=== PATIENT | female | born 1980 | race Caucasian/White ===

== ENCOUNTER 2017-07-13 19:29 | Inpatient (IN) | payer MEDICAID ==
[2017-07-13] MEDS: PROGESTERONE 100 MG CAP VAG (21:53)
[2017-07-13] MEDS: BETAMET NA PHOS/AC(6 MG/ML) 5ML INJ IM (21:55)
[2017-07-14 06:45] LABS: ADD MAN DIFF? NO
[2017-07-14 06:49] LABS: BASOPHILS % 0.2 % (0.0-2.0); EOSINOPHILS % 0.1 % (0.0-7.0); HEMATOCRIT 34.6 % (37.0-47.0); HEMOGLOBIN 11.8 g/dl (12.0-16.0); LYMPHOCYTES # 1.2 10^3/ul (0.8-2.9); LYMPHOCYTES % 10.9 % (15.0-51.0); MEAN CORPUSCULAR HEMOGLOBIN 30.6 pg (29.0-33.0); MEAN CORPUSCULAR HGB CONC 34.1 g/dl (32.0-37.0); MEAN CORPUSCULAR VOLUME 89.6 fl (82.0-101.0); MEAN PLATELET VOLUME 12.2 fl (7.4-10.4); MONOCYTE # 0.1 10^3/ul (0.3-0.9); MONOCYTES % 1.3 % (0.0-11.0); NEUTROPHIL # 9.2 10^3/ul (1.6-7.5); NEUTROPHILS % 86.7 % (39.0-77.0); PLATELET COUNT 147 10^3/UL (140-415); RED BLOOD COUNT 3.86 10^6/ul (4.20-5.40); RED CELL DISTRIBUTION WIDTH 13.2 % (11.5-14.5)
[2017-07-14 06:49] LABS: WHITE BLOOD COUNT 10.6 10^3/ul (4.8-10.8)
[2017-07-14 07:08] LABS: INR 0.99; PROTIME 13.2 Sec (11.9-14.9)
[2017-07-14] MEDS: PRENATAL VITAMIN PO (09:10)
[2017-07-14] MEDS: FERROUS SULFATE (EC) 325 MG TAB PO (09:10)
[2017-07-14] MEDS: PROGESTERONE 100 MG CAP VAG ×2 (09:10→21:08)
[2017-07-14] MEDS: CALCIUM CARBONATE 1.25 GM TAB PO (09:10)
[2017-07-14] MEDS: FOLIC ACID 1 MG TAB PO (10:21)
[2017-07-14 15:37] LABS: RAPID PLASMA REAGIN NONREACTIVE (NR)
[2017-07-14] MEDS: BETAMET NA PHOS/AC(6 MG/ML) 5ML INJ IM (21:57)
[2017-07-15] MEDS: PRENATAL VITAMIN PO (08:37)
[2017-07-15] MEDS: FOLIC ACID 1 MG TAB PO (08:37)
[2017-07-15] MEDS: FERROUS SULFATE (EC) 325 MG TAB PO (08:37)
[2017-07-15] MEDS: PROGESTERONE 100 MG CAP VAG (09:00)
== END 2017-07-15 13:40 | disposition left against medical advice (07) | DRG 782 ==
LOC: L-D 19:29
PROVIDERS: Obstetrics & Gynecology
DX: O26.872 Cervical shortening, second trimester (principal); Z3A.26 26 weeks gestation of pregnancy; Z97.5 Presence of (intrauterine) contraceptive device
CPT/HCPCS: 85025; 85610; 85730; 86592; 86850; 86900; 86901

== ENCOUNTER 2017-07-19 11:19 | Inpatient (IN) | payer MEDICAID ==
[2017-07-19 13:19] LABS: ADD UMIC YES; UR ASCORBIC ACID NEGATIVE (NEGATIVE); UR BILIRUBIN (Dip) NEGATIVE (NEGATIVE); UR BLOOD (Dip) 3+ mg/dL (NEGATIVE); UR CLARITY CLOUDY (CLEAR); UR COLOR YELLOW (YELLOW); UR GLUCOSE (Dip) NEGATIVE (NEGATIVE); UR KETONES (Dip) NEGATIVE (NEGATIVE); UR LEUKOCYTE ESTERASE (Dip) 3+ Leu/ul (NEGATIVE); UR NITRITE (Dip) NEGATIVE (NEGATIVE); UR RBC 5 /HPF (0-5); UR SQUAMOUS EPITHELIAL CELL FEW /HPF (FEW); UR TOTAL PROTEIN (Dip) NEGATIVE (NEGATIVE); UR UROBILINOGEN (Dip) NEGATIVE (NEGATIVE); UR WBC 16 /HPF (0-5)
[2017-07-19] MEDS: LACTATED RINGER'S 1,000 ML IV (18:53)
[2017-07-19] MEDS: MAGNESIUM SULFATE 4 GM/100 ML 100 ML IV (18:54)
[2017-07-19] MEDS: MAGNESIUM SULFATE 20 GM/500 ML 500 ML IV (19:13)
[2017-07-19 20:28] LABS: ADD MAN DIFF? NO
[2017-07-19 20:30] LABS: BASOPHIL # 0.1 10^3/ul (0.0-0.1); BASOPHILS % 0.3 % (0.0-2.0); EOSINOPHILS # 0.1 10^3/ul (0.0-0.5); EOSINOPHILS % 0.8 % (0.0-7.0); HEMATOCRIT 37.7 % (37.0-47.0); HEMOGLOBIN 12.8 g/dl (12.0-16.0); LYMPHOCYTES # 2.2 10^3/ul (0.8-2.9); MEAN CORPUSCULAR HEMOGLOBIN 30.9 pg (29.0-33.0); MEAN CORPUSCULAR VOLUME 91.1 fl (82.0-101.0); MEAN PLATELET VOLUME 12.8 fl (7.4-10.4); MONOCYTE # 1.1 10^3/ul (0.3-0.9); MONOCYTES % 6.3 % (0.0-11.0); NEUTROPHIL # 13.3 10^3/ul (1.6-7.5); NEUTROPHILS % 78.8 % (39.0-77.0); PLATELET COUNT 156 10^3/UL (140-415); RED BLOOD COUNT 4.14 10^6/ul (4.20-5.40); RED CELL DISTRIBUTION WIDTH 13.3 % (11.5-14.5)
[2017-07-19 20:30] LABS: WHITE BLOOD COUNT 16.9 10^3/ul (4.8-10.8)
[2017-07-19 20:49] LABS: INR 0.96; PARTIAL THROMBOPLASTIN TIME 25.8 Sec (25.0-35.0); PROTIME 12.9 Sec (11.9-14.9)
[2017-07-19 21:07] LABS: HEPATITIS B SURFACE ANTIGEN NEGATIVE (NEGATIVE)
[2017-07-20] MEDS: MAGNESIUM SULFATE 20 GM/500 ML 500 ML IV ×2 (05:40→16:45)
[2017-07-20] MEDS: ACETAMINOPHEN 325 MG TAB PO (06:07)
[2017-07-20] MEDS: AMPICILLIN 2 GM/NS (PMX) 100 ML IV (06:44)
[2017-07-20] MEDS: AMPICILLIN 1 GM/NS (PMX) 50 ML IV ×4 (10:50→23:08)
[2017-07-20 15:28] LABS: ADD MAN DIFF? NO
[2017-07-20 15:30] LABS: WHITE BLOOD COUNT 16.5 10^3/ul (4.8-10.8)
[2017-07-20 15:30] LABS: BASOPHIL # 0.1 10^3/ul (0.0-0.1); BASOPHILS % 0.4 % (0.0-2.0); EOSINOPHILS # 0.1 10^3/ul (0.0-0.5); EOSINOPHILS % 0.5 % (0.0-7.0); HEMOGLOBIN 11.5 g/dl (12.0-16.0); LYMPHOCYTES # 1.3 10^3/ul (0.8-2.9); LYMPHOCYTES % 8.1 % (15.0-51.0); MEAN CORPUSCULAR HEMOGLOBIN 30.2 pg (29.0-33.0); MEAN CORPUSCULAR HGB CONC 33.8 g/dl (32.0-37.0); MEAN CORPUSCULAR VOLUME 89.2 fl (82.0-101.0); MEAN PLATELET VOLUME 12.2 fl (7.4-10.4); MONOCYTES % 5.9 % (0.0-11.0); NEUTROPHIL # 13.9 10^3/ul (1.6-7.5); NEUTROPHILS % 84.4 % (39.0-77.0); PLATELET COUNT 161 10^3/UL (140-415); RED BLOOD COUNT 3.81 10^6/ul (4.20-5.40); RED CELL DISTRIBUTION WIDTH 13.4 % (11.5-14.5)
[2017-07-20] MEDS: LACTATED RINGER'S 1,000 ML IV ×2 (16:44→21:08)
[2017-07-20 19:47] LABS: MAGNESIUM 6.2 mg/dl (1.7-2.5)
[2017-07-21] MEDS: AMPICILLIN 1 GM/NS (PMX) 50 ML IV ×6 (02:58→23:00)
[2017-07-21] MEDS: LACTATED RINGER'S 1,000 ML IV ×2 (06:57→12:34)
[2017-07-21] MEDS: AZITHROMYCIN 500MG/NS (PMX) 250 ML IVPB (09:07)
[2017-07-21] MEDS: MAGNESIUM SULFATE 20 GM/500 ML 500 ML IV ×2 (09:13→19:43)
[2017-07-21 09:48] LABS: RUPTURE FETAL MEMBRANES POSITIVE (NEGATIVE)
[2017-07-21 19:43] LABS: MAGNESIUM 5.4 mg/dl (1.7-2.5)
[2017-07-22] MEDS: AMPICILLIN 1 GM/NS (PMX) 50 ML IV ×6 (01:40→22:55)
[2017-07-22] MEDS: MAGNESIUM SULFATE 20 GM/500 ML 500 ML IV (05:05)
[2017-07-22] MEDS: LACTATED RINGER'S 1,000 ML IV ×2 (05:08→19:05)
[2017-07-22 07:40] LABS: MAGNESIUM 6.1 mg/dl (1.7-2.5)
[2017-07-22] MEDS: AZITHROMYCIN 500MG/NS (PMX) 250 ML IVPB (08:27)
[2017-07-22 14:14] LABS: MAGNESIUM 6.2 mg/dl (1.7-2.5)
[2017-07-22] MEDS: DOCUSATE SODIUM 100 MG CAP PO (21:52)
[2017-07-23] MEDS: AMPICILLIN 1 GM/NS (PMX) 50 ML IV ×2 (03:25→06:33)
[2017-07-23] MEDS: LACTATED RINGER'S 1,000 ML IV ×3 (03:26→22:42)
[2017-07-23] MEDS: AZITHROMYCIN 500MG/NS (PMX) 250 ML IVPB (08:52)
[2017-07-23] MEDS: DOCUSATE SODIUM 100 MG CAP PO (08:52)
[2017-07-23] MEDS ORDERED: FAMOTIDINE 20 MG INJ (10:51)
[2017-07-23] MEDS ORDERED: CITRIC ACID/SODIUM CITRATE 15 ML CUP (10:51)
[2017-07-23] MEDS ORDERED: METOCLOPRAMIDE 10 MG INJ (10:51)
[2017-07-23] MEDS ORDERED: CEFAZOLIN 2 GM/50 ML (PMX) 50 ML IVPB (11:00)
[2017-07-23] MEDS: CITRIC ACID/SODIUM CITRATE 15 ML CUP PO (11:05)
[2017-07-23] MEDS: METOCLOPRAMIDE 10 MG INJ IV (11:05)
[2017-07-23] MEDS: FAMOTIDINE 20 MG INJ IV (11:05)
[2017-07-23] MEDS ORDERED: morphine SULFATE/PF (10 MG/10 ML) INJ (11:10)
[2017-07-23] MEDS ORDERED: BUPIVACAINE 0.75%/DEXT (SPINAL) 2 ML INJ (11:10)
[2017-07-23] MEDS ORDERED: PHENYLephrine (100 MCG/ML) 5ML SYG (11:10)
[2017-07-23] MEDS ORDERED: FENTAnyl 50 MCG/ML VIAL (11:10)
[2017-07-23 11:46] LABS: ADD MAN DIFF? NO
[2017-07-23 11:49] LABS: WHITE BLOOD COUNT 10.7 10^3/ul (4.8-10.8)
[2017-07-23 11:49] LABS: BASOPHILS % 0.3 % (0.0-2.0); EOSINOPHILS # 0.1 10^3/ul (0.0-0.5); EOSINOPHILS % 0.8 % (0.0-7.0); HEMATOCRIT 34.5 % (37.0-47.0); HEMOGLOBIN 11.6 g/dl (12.0-16.0); LYMPHOCYTES # 1.4 10^3/ul (0.8-2.9); MEAN CORPUSCULAR HEMOGLOBIN 30.7 pg (29.0-33.0); MEAN CORPUSCULAR HGB CONC 33.6 g/dl (32.0-37.0); MEAN CORPUSCULAR VOLUME 91.3 fl (82.0-101.0); MEAN PLATELET VOLUME 12.2 fl (7.4-10.4); MONOCYTE # 0.6 10^3/ul (0.3-0.9); MONOCYTES % 5.3 % (0.0-11.0); NEUTROPHIL # 8.5 10^3/ul (1.6-7.5); NEUTROPHILS % 80.1 % (39.0-77.0); PLATELET COUNT 162 10^3/UL (140-415); RED BLOOD COUNT 3.78 10^6/ul (4.20-5.40); RED CELL DISTRIBUTION WIDTH 13.1 % (11.5-14.5)
[2017-07-23] MEDS ORDERED: OXYTOCIN 30 UNITS/LR 500 ML IV ×2 (11:56→16:30)
[2017-07-23] MEDS ORDERED: ONDANSETRON 4 MG INJ (11:57)
[2017-07-23] MEDS ORDERED: DEXAMETHASONE 4 MG/ML 1 ML INJ (11:57)
[2017-07-23 12:16] LABS: PARTIAL THROMBOPLASTIN TIME 27.2 Sec (25.0-35.0); PT RATIO 1.1
[2017-07-23 12:48] LABS: INR 1.01; PROTIME 13.4 Sec (11.9-14.9)
[2017-07-23] MEDS ORDERED: ZOLPIDEM 5 MG TAB PO (13:00)
[2017-07-23] MEDS ORDERED: NALBUPHINE HCL (10 MG/1 ML) INJ IV (13:00)
[2017-07-23] MEDS ORDERED: ONDANSETRON 4 MG INJ IV (13:00)
[2017-07-23] MEDS ORDERED: NALOXONE (0.4 MG/ML) INJ IV (13:00)
[2017-07-23] MEDS ORDERED: DIPHENHYDRAMINE 50 MG INJ IV (13:00)
[2017-07-23] MEDS ORDERED: HYDROmorphONE 0.5 MG/0.5 ML SYG IV ×2 (13:00)
[2017-07-23 15:12] LABS: RAPID PLASMA REAGIN NONREACTIVE (NR)
[2017-07-23] MEDS ORDERED: MISOPROSTOL 200 MCG TAB PR (16:30)
[2017-07-23] MEDS ORDERED: CARBOPROST 250 MCG INJ IM (16:30)
[2017-07-23] MEDS ORDERED: METHYLERGONOVINE 0.2 MG INJ IM (16:30)
[2017-07-23] MEDS ORDERED: LANOLIN 7 GM TUBE TOP (16:30)
[2017-07-23] MEDS: KETOROLAC 30 MG INJ IV (20:04)
[2017-07-23] MEDS: SENNA/DOCUSATE NA (8.6MG/50MG) TAB PO (21:08)
[2017-07-24] MEDS: KETOROLAC 30 MG INJ IV (04:19)
[2017-07-24] MEDS: LACTATED RINGER'S 1,000 ML IV (06:47)
[2017-07-24] MEDS: SENNA/DOCUSATE NA (8.6MG/50MG) TAB PO ×2 (09:10→20:47)
[2017-07-24 09:58] LABS: ADD MAN DIFF? NO
[2017-07-24 10:02] LABS: BASOPHILS % 0.2 % (0.0-2.0); EOSINOPHILS # 0.1 10^3/ul (0.0-0.5); EOSINOPHILS % 0.8 % (0.0-7.0); HEMATOCRIT 28.8 % (37.0-47.0); HEMOGLOBIN 9.7 g/dl (12.0-16.0); LYMPHOCYTES # 1.8 10^3/ul (0.8-2.9); MEAN CORPUSCULAR HEMOGLOBIN 30.7 pg (29.0-33.0); MEAN CORPUSCULAR HGB CONC 33.7 g/dl (32.0-37.0); MEAN CORPUSCULAR VOLUME 91.1 fl (82.0-101.0); MONOCYTE # 0.5 10^3/ul (0.3-0.9); MONOCYTES % 4.4 % (0.0-11.0); NEUTROPHIL # 8.3 10^3/ul (1.6-7.5); PLATELET COUNT 145 10^3/UL (140-415); RED BLOOD COUNT 3.16 10^6/ul (4.20-5.40); RED CELL DISTRIBUTION WIDTH 12.7 % (11.5-14.5)
[2017-07-24 10:02] LABS: WHITE BLOOD COUNT 10.7 10^3/ul (4.8-10.8)
[2017-07-24] MEDS: OXYCODONE/ACETAMINOPHEN (5/325) TAB PO (13:55)
[2017-07-24] MEDS: IBUPROFEN 600 MG TAB PO ×2 (17:56→23:35)
[2017-07-25] MEDS: IBUPROFEN 600 MG TAB PO ×3 (05:26→17:25)
[2017-07-25] MEDS: SENNA/DOCUSATE NA (8.6MG/50MG) TAB PO ×2 (09:01→20:20)
[2017-07-25] MEDS: OXYCODONE/ACETAMINOPHEN (5/325) TAB PO (20:19)
[2017-07-26] MEDS: IBUPROFEN 600 MG TAB PO ×2 (00:20→05:54)
[2017-07-26] MEDS: SENNA/DOCUSATE NA (8.6MG/50MG) TAB PO (09:15)
[2017-07-26] MEDS: DIPHTH/TET/ACEL PERTUSS (ADULT) 0.5 ML VIAL IM* (09:42)
[2017-07-26] MEDS: OXYCODONE/ACETAMINOPHEN (5/325) TAB PO (11:53)
== END 2017-07-26 13:15 | disposition home or self-care (01) | DRG 766 ==
LOC: OBT 11:19 → L-D 11:20 → OBT 17:00 → L-D 07-23 12:45 → PP1 07-23 15:44
PROC: 4A1HXCZ Monitoring of Products of Conception, Cardiac Rate, External Approach (ICD-10-PCS; 2017-07-19)
PROC: 10D00Z1 Extraction of Products of Conception, Low, Open Approach (ICD-10-PCS; principal; 2017-07-23)
PROC: 0UB70ZZ Excision of Bilateral Fallopian Tubes, Open Approach (ICD-10-PCS; 2017-07-23)
DX: O26.873 Cervical shortening, third trimester (principal); O76 Abnormality in fetal heart rate and rhythm complicating labor and delivery; O42.913 Preterm premature rupture of membranes, unspecified as to length of time between rupture and onset of labor, third trimester; O34.211 Maternal care for low transverse scar from previous cesarean delivery; O26.33 Retained intrauterine contraceptive device in pregnancy, third trimester; Z3A.30 30 weeks gestation of pregnancy; Z37.0 Single live birth; Z30.2 Encounter for sterilization
CPT/HCPCS: 76815; 76817; 76818; 81001; 83735; 84112; 85025; 85610; 85730; 86592; 86850; 86900; 86901; 87340; 88300; 88302; 88307; 99464